=== PATIENT | female | born 1990 | race African-American/Black ===

== ENCOUNTER 2016-12-24 20:28 | Emergency (ER) | payer MEDICAID ==
[~2016-12-24] VITALS: Ht 165.1 cm; Wt 136.1 kg
--- NOTE | 2016-12-24 21:00 | NUR ---
26Y F PRESENT TO ER C/O OF PAIN ON URINATION. STARTED TODAY. V/S WNL.
[2016-12-24] MEDS ORDERED: NITROGLYCERIN 2% 1 GM PKT TP ONE (21:06)
[2016-12-24] MEDS ORDERED: MORPHINE SULFATE 4 MG/ML SYR ONE (21:07)
[2016-12-24] MEDS ORDERED: ASPIRIN 325 MG TAB ONE (21:07)
--- NOTE | 2016-12-24 21:08 | NUR ---
PT TAKEN TO OF
--- NOTE | 2016-12-24 21:08 | NUR ---
Dr. Ceballos evaluating patient
[2016-12-24 21:14] VITALS: BP 146/85
--- NOTE | 2016-12-24 21:15 | NUR ---
Patient discharged with v/s stable. Written and verbal after care instructions given and explained. Patient alert, oriented and verbalized understanding of instructions. Ambulatory with steady gait. All questions addressed prior to discharge. ID band removed. Patient advised to follow up with PMD. Rx of MACROBID CAPSULE, PYRIDIUM 200 MG PO given. Patient educated on indication of medication including possible reaction and side effects. Opportunity to ask questions provided and answered.
[2016-12-24 21:22] VITALS: BP 142/78
== END 2016-12-24 21:15 | disposition home or self-care (01) ==
LOC: MED 20:28
DX: N39.0 Urinary tract infection, site not specified (principal); Z88.6 Allergy status to analgesic agent
CPT/HCPCS: 81002; 81025; 99283; J2270

== ENCOUNTER 2017-01-30 11:44 | Emergency (ER) | payer MEDICAID ==
[~2017-01-30] VITALS: Ht 160 cm; Wt 119.3 kg
[2017-01-30 11:48] VITALS: BP 133/65
--- NOTE | 2017-01-30 14:20 | NUR ---
PT AMBULATED TO OVERFLOW #1.
--- NOTE | 2017-01-30 14:24 | NUR ---
26/F PRESENT TO ER C/O COUGH x ONE WEEK. PT STATES SHE HAS COLD SYMPTOMS FOR ONE WEEK, PRODUCTIVE COUGH. PT STATES SHE WAS TAKING OTC COUGH MEDICINE AND DID NOT WORK. PAIN 8/10 THROAT ACHING NON-RADIATING. AAOx4, PERRLA, BREATHING EVEN AND UNLABORED. ERMD NOTIFIED OF PATIENT STATUS.
--- NOTE | 2017-01-30 14:45 | NUR ---
Patient being evaluated by physician at bedside.
--- NOTE | 2017-01-30 14:48 | NUR ---
Patient discharged with v/s stable. Written and verbal after care instructions given and explained. Patient alert, oriented and verbalized understanding of instructions. Ambulatory with steady gait. All questions addressed prior to discharge. ID band removed. Patient advised to follow up with PMD. Rx of CHERATUSSIN 100MG-10MG/5ML AND ALBUTEROL 90MCG/ACTUATION given. Patient educated on indication of medication including possible reaction and side effects. Opportunity to ask questions provided and answered.
[2017-01-30 14:49] VITALS: BP 131/65
== END 2017-01-30 14:48 | disposition home or self-care (01) ==
LOC: MED 11:44
DX: J06.9 Acute upper respiratory infection, unspecified (principal); R59.1 Generalized enlarged lymph nodes
CPT/HCPCS: 81002; 81025; 99283

== ENCOUNTER 2017-08-14 11:24 | Emergency (ER) | payer SELFPAY ==
[~2017-08-14] VITALS: Ht 157.5 cm; Wt 118.6 kg
[2017-08-14 11:56] VITALS: BP 140/87
--- NOTE | 2017-08-14 12:03 | NUR ---
Patient ambulated to bed 11.
--- NOTE | 2017-08-14 12:06 | NUR ---
Patient being evaluated by physician at bedside.
[2017-08-14 12:19] VITALS: BP 140/87
--- NOTE | 2017-08-14 12:20 | NUR ---
Patient discharged with v/s stable. Written and verbal after care instructions given and explained. Patient alert, oriented and verbalized understanding of instructions. Ambulatory with steady gait. All questions addressed prior to discharge. ID band removed. Patient advised to follow up with PMD. Rx of PROMETHAZINE given. Patient educated on indication of medication including possible reaction and side effects. Opportunity to ask questions provided and answered.
== END 2017-08-14 12:20 | disposition home or self-care (01) ==
LOC: MED 11:24
DX: J20.9 Acute bronchitis, unspecified (principal); B34.9 Viral infection, unspecified; R11.10 Vomiting, unspecified; Z88.6 Allergy status to analgesic agent; E66.01 Morbid (severe) obesity due to excess calories; Z68.42 Body mass index [BMI] 45.0-49.9, adult
CPT/HCPCS: 81002; 81025; 99283

== ENCOUNTER 2019-09-03 01:18 | Emergency (ER) | payer MEDICAID ==
[~2019-09-03] VITALS: Ht 157.5 cm; Wt 104.3 kg
[2019-09-03 01:22] VITALS: BP 119/62
--- NOTE | 2019-09-03 01:22 | NUR ---
TO BED # 03 AMBULATORY
--- NOTE | 2019-09-03 01:40 | NUR ---
PT LYING DOWN ON SIDE. APPEARS UNCOMFORTABLE. NASAL CONGESTION HEARD.
--- NOTE | 2019-09-03 01:45 | NUR ---
FLU SWAB COLLECTED. SENT TO LAB.
[2019-09-03 02:59] VITALS: BP 119/62
--- NOTE | 2019-09-03 02:59 | NUR ---
Patient discharged with v/s stable. Written and verbal after care instructions given and explained. Patient alert, oriented and verbalized understanding of instructions. Ambulatory with steady gait. All questions addressed prior to discharge. ID band removed. Patient advised to follow up with PMD. Rx of PROMETHAZINE HYDROCHLORIDE WAS given. Patient educated on indication of medication including possible reaction and side effects. Opportunity to ask questions provided and answered. PT STATED HER PAIN WAS 3/10 PRIOR TO D/C. PT WAS INSTRUCTED TO DRINK MORE FLUIDS DIRECTED IN THE IN HOME CARE INSTRUCTIONS PER MD.PT UNDERSTOOD IN HOME CARE INSTRUCTIONS.
== END 2019-09-03 01:22 | disposition home or self-care (01) ==
LOC: MED 01:18
DX: N39.0 Urinary tract infection, site not specified (principal)
CPT/HCPCS: 87804; 99283

== ENCOUNTER 2019-09-06 00:11 | Emergency (ER) | payer MEDICAID ==
[~2019-09-06] VITALS: Ht 157.5 cm; Wt 104.3 kg
[2019-09-06 00:11] VITALS: BP 143/89
--- NOTE | 2019-09-06 00:11 | NUR ---
TO BED # 03 AMBULATORY
--- NOTE | 2019-09-06 00:11 | NUR ---
29 Y/O FEMAL C/O SORE THROART; NAUSEA, VOMITING; NAUSEA; COUGH AND HEADACHE X1 DAY. PT. RATES PAIN AT A 8/10. +NAUSEA/VOMITING; DENIES DIARRHEA. LMP: 08/11/19. PT. STATES THAT COUGH IS PRODUCTIVE WITH YELLOW SPUTUM. RR 18; 98% SPO2 ON RA. LUNG SOUNDS ARE CLEAR/DIMINSHED IN THE BASES ANTERIOR/POSTERIOR, BILATERALLY. MUCOUS MEMBRANES ARE PINK AND MOIST; SLIGHT REDNESS NOTED IN THE THROAT. PT. ALSO C/O OF GENERALIZED BODY ACHES. DENIES FEVER/CHILLS; ERMD MADE AWARE OF STATUS. SIDE RAILSX1. WILL CONTINUE TO MONITOR. PMH:DENIES RX:DENIES ALLERGIES: IBUPROFEN
[2019-09-06] MEDS ORDERED: ACETAMINOPHEN/CODEINE 300/30MG 1 TAB PO ONE (01:20)
[2019-09-06 01:29] VITALS: BP 138/79
--- NOTE | 2019-09-06 01:29 | NUR ---
Patient discharged with v/s stable. Written and verbal after care instructions given and explained. Patient alert, oriented and verbalized understanding of instructions. Ambulatory with steady gait. All questions addressed prior to discharge. ID band removed. Patient advised to follow up with PMD. Rx of PROMETHAZINE AND Z-PACK given. Patient educated on indication of medication including possible reaction and side effects. Opportunity to ask questions provided and answered.
== END 2019-09-06 01:29 | disposition home or self-care (01) ==
LOC: MED 00:11
DX: J06.9 Acute upper respiratory infection, unspecified (principal); R51 Headache; Z88.6 Allergy status to analgesic agent
CPT/HCPCS: 87081; 99283

== ENCOUNTER 2020-11-18 10:43 | Emergency (ER) | payer MEDICAID ==
[~2020-11-18] VITALS: Ht 157.5 cm; Wt 115.2 kg
[2020-11-18 10:53] VITALS: BP 147/76
--- NOTE | 2020-11-18 11:00 | NUR ---
PT TAKEN TO BED 12.
[2020-11-18] MEDS ORDERED: KETOROLAC 30 MG/ML VIAL IM ONE (11:50)
[2020-11-18 13:29] VITALS: BP 139/74
--- NOTE | 2020-11-18 13:31 | NUR ---
Patient discharged with v/s stable. Written and verbal after care instructions given and explained. Patient alert, oriented and verbalized understanding of instructions. Ambulatory with steady gait. All questions addressed prior to discharge. ID band removed. Patient advised to follow up with PMD. Rx of VALIUM, TYLENOL given. Patient educated on indication of medication including possible reaction and side effects. Opportunity to ask questions provided and answered.
== END 2020-11-18 13:31 | disposition home or self-care (01) ==
LOC: MED 10:43
DX: S16.1XXA Strain of muscle, fascia and tendon at neck level, initial encounter (principal); M54.5 Low back pain; Z88.8 Allergy status to other drugs, medicaments and biological substances; V49.60XA Unspecified car occupant injured in collision with unspecified motor vehicles in traffic accident, initial encounter; Y93.89 Activity, other specified; Y92.89 Other specified places as the place of occurrence of the external cause; Y99.8 Other external cause status
CPT/HCPCS: 72040; 72100; 81025; 96372; 99284; J1885

== ENCOUNTER 2022-03-04 11:12 | Emergency (ER) | payer MEDICAID, OTHER ==
[~2022-03-04] VITALS: Ht 157.5 cm; Wt 110.2 kg
[2022-03-04 11:23] VITALS: BP 131/75
--- NOTE | 2022-03-04 11:55 | NUR ---
DR YEE AT BEDSIDE EVALUATING PT
[2022-03-04] MEDS ORDERED: LIDOCAINE 5% 1 EA PATCH TP SCH (12:00)
[2022-03-04] MEDS ORDERED: methocarbamoL 500 MG TAB PO ONE (12:00)
[2022-03-04] MEDS ORDERED: ACETAMINOPHEN EXTRA STRENGTH 500 MG TAB PO ONE (12:00)
--- NOTE | 2022-03-04 12:33 | NUR ---
PT TAKEN TO XRAY VIA W/C
--- NOTE | 2022-03-04 12:39 | NUR ---
PT BACK FROM RAD.
[2022-03-04 12:50] VITALS: BP 130/77
[2022-03-04] MEDS ORDERED: ACET-10509 PO (14:33)
[2022-03-04] MEDS ORDERED: LID5T TP (14:33)
--- NOTE | 2022-03-04 14:49 | NUR ---
Patient discharged with v/s stable. Written and verbal after care instructions FOR MUSCLE STRAIN AND ACUTE BACK PAIN given and explained. Patient alert, oriented and verbalized understanding of instructions. Ambulatory with steady gait. All questions addressed prior to discharge. ID band removed. Patient advised to follow up with PMD. Rx of TYLENOL EXTRA STRENGTH AND LIDOCAINE HYD given. Opportunity to ask questions provided and answered.
--- NOTE | 2022-03-04 14:50 | NUR ---
The patient's care was reviewed and supervised by Callie Richey RN.
== END 2022-03-04 14:51 | disposition home or self-care (01) ==
LOC: MED 11:12
DX: S29.012A Strain of muscle and tendon of back wall of thorax, initial encounter (principal); Z79.899 Other long term (current) drug therapy; Z88.6 Allergy status to analgesic agent; X58.XXXA Exposure to other specified factors, initial encounter; Y92.89 Other specified places as the place of occurrence of the external cause; Y93.89 Activity, other specified; Y99.8 Other external cause status
CPT/HCPCS: 71046; 81002; 81025; 99283

== ENCOUNTER 2023-09-20 19:52 | Emergency (ER) | payer BC, OTHER ==
[~2023-09-20] VITALS: Ht 157.5 cm; Wt 104.3 kg
[~2023-09-20 19:52] MED LIST: ACET-10509 PO; LID5T TP
[2023-09-20 20:29] VITALS: BP 133/89; PULSE 99; RESP 20; TEMP 100.2; O2SAT 100
[2023-09-20 20:58] LABS: FLU A ANTIGEN negative (NEGATIVE); FLU B ANTIGEN NEGATIVE (NEGATIVE)
[2023-09-20] MEDS ORDERED: MUC600 PO (21:34)
[2023-09-20] MEDS ORDERED: BENZ200C4 PO (21:34)
== END 2023-09-20 21:45 | disposition home or self-care (01) ==
LOC: MED 19:52
DX: B34.9 Viral infection, unspecified (principal); Z20.822 Contact with and (suspected) exposure to COVID-19; Z79.899 Other long term (current) drug therapy; Z88.6 Allergy status to analgesic agent
CPT/HCPCS: 99283

== ENCOUNTER 2024-01-18 15:48 | Emergency (ER) | payer BC ==
[~2024-01-18] VITALS: Ht 157.5 cm; Wt 108.9 kg
[~2024-01-18 15:48] MED LIST changes: +BENZ200C4 PO; +MUC600 PO
[2024-01-18 16:07] VITALS: BP 140/93; PULSE 74; RESP 18; TEMP 97.3; O2SAT 99
[2024-01-18 17:10] LABS: APPEARANCE,URINE CLEAR (CLEAR); BILIRUBIN,URINE NEGATIVE (NEGATIVE); BLOOD, URINE 3+ (NEGATIVE); COLOR,URINE YELLOW (YELLOW); LEUKOCYTE ESTERASE ,URINE 1+ (NEGATIVE); NITRITE, URINE NEGATIVE (NEGATIVE); PROTEIN,URINE NEGATIVE (NEGATIVE); UGLUCOSE NEGATIVE (NEGATIVE); UROBILINOGEN,URINE 0.2 EU/dL (0.2 - 1)
[2024-01-18 17:12] LABS: BACTERIA,URINE 1+ /HPF (None Seen); SQUAMOUS EPITHELIAL CELL,UR 0-3 (FEW) /LPF (0-3 (FEW)); WBC,URINE 0-5 /HPF (0-5)
[2024-01-18 17:13] LABS: MUCUS,URINE None Seen /LPF (None Seen)
[2024-01-18] MEDS ORDERED: PYR100 PO (17:22)
[2024-01-18] MEDS ORDERED: CEPH-588 PO (17:22)
[2024-01-18 17:30] VITALS: BP 135/82; PULSE 77; RESP 16; TEMP 98; O2SAT 99
== END 2024-01-18 17:30 | disposition home or self-care (01) ==
LOC: MED 15:48
DX: N39.0 Urinary tract infection, site not specified (principal); R03.0 Elevated blood-pressure reading, without diagnosis of hypertension; Z79.1 Long term (current) use of non-steroidal anti-inflammatories (NSAID); Z79.899 Other long term (current) drug therapy; Z88.6 Allergy status to analgesic agent
CPT/HCPCS: 81001; 81025; 87086; 99283

== ENCOUNTER 2024-03-23 19:39 | Emergency (ER) | payer BC ==
[~2024-03-23] VITALS: Ht 154.9 cm; Wt 108.9 kg
[~2024-03-23 19:39] MED LIST changes: +CEPH-588 PO; +PYR100 PO
[2024-03-23 19:51] VITALS: BP 135/80; PULSE 96; RESP 20; TEMP 97.2; O2SAT 100
[2024-03-23 20:17] VITALS: O2SAT 100
[2024-03-23 20:35] LABS: BASOPHILS % (AUTO) 0.4 % (0.0-2.0); EOSINOPHILS % (AUTO) 0.6 % (0.0-4.0); HEMATOCRIT 37.8 % (36-48); HEMOGLOBIN 12.3 g/dL (12.0-16.0); LYMPHOCYTES # (AUTO) 2.4 K/uL (2.5-16.5); LYMPHOCYTES % (AUTO) 43.6 % (20.5-51.1); MEAN CORPUSCULAR HEMOGLOBIN 26 pg (27-31); MEAN CORPUSCULAR HGB CONC 33 g/dL (33-37); MEAN CORPUSCULAR VOLUME 80.8 fL (80-94); MONOCYTES # (AUTO) 0.4 K/uL (0.8-1.0); MONOCYTES % (AUTO) 6.9 % (1.7-9.3); NEUTROPHILS # (AUTO) 2.7 K/uL (1.8-7.7); NEUTROPHILS % (AUTO) 48.5 % (42.2-75.2); PLATELET COUNT (AUTO) 248 K/uL (140-450); RED BLOOD CELL COUNT(AUTO) 4.68 MIL/uL (4.20-5.40); RED CELL DISTRIBUTION WIDTH 16.9 % (11.6-13.7); WHITE BLOOD COUNT (AUTO) 5.5 K/uL (4.8-10.8)
[2024-03-23 20:37] LABS: BILIRUBIN,URINE NEGATIVE (NEGATIVE); BLOOD, URINE 3+ (NEGATIVE); COLOR,URINE YELLOW (YELLOW); LEUKOCYTE ESTERASE ,URINE NEGATIVE (NEGATIVE); NITRITE, URINE NEGATIVE (NEGATIVE); PROTEIN,URINE 1+ (NEGATIVE); UGLUCOSE NEGATIVE (NEGATIVE); UROBILINOGEN,URINE 0.2 EU/dL (0.2 - 1)
[2024-03-23 20:38] LABS: APPEARANCE,URINE SLIGHTLY HAZY (CLEAR)
[2024-03-23 20:46] LABS: RBC,URINE 11-20 (MOD) /HPF (0-5); WBC,URINE 0 /HPF (0-5)
[2024-03-23 20:47] LABS: BACTERIA,URINE 1+ /HPF (None Seen); MUCUS,URINE None Seen /LPF (None Seen); SQUAMOUS EPITHELIAL CELL,UR 0-3 (FEW) /LPF (0-3 (FEW))
== END 2024-03-23 22:35 | disposition home or self-care (01) ==
LOC: MED 19:39
DX: N93.9 Abnormal uterine and vaginal bleeding, unspecified (principal); Z79.1 Long term (current) use of non-steroidal anti-inflammatories (NSAID); Z79.899 Other long term (current) drug therapy
CPT/HCPCS: 36415; 76856; 81001; 81025; 85025; 86900; 86901; 93976; 99284; Q0092